=== PATIENT | female | born 1945 | race Caucasian/White ===

== ENCOUNTER 2016-10-13 08:55 | Outpatient (CLI) | payer SELFPAY | END 2016-10-13 08:56 | disposition home or self-care (01) | LOC: LAB 08:55 | DX: Z01.89 Encounter for other specified special examinations (principal) | CPT/HCPCS: 36415 ==

== ENCOUNTER 2016-12-22 10:17 | Outpatient (CLI) | payer MEDICARE ==
--- NOTE | 2016-12-22 12:35 | XRAY Report ---
THREE-VIEW RIGHT FOOT: 12/22/2016 CLINICAL INDICATION: Pain, edema. FINDINGS: AP, lateral, oblique views of the right foot demonstrate osteoarthritis, with hallux valgu s of the first metatarsophalangeal joint. Small plantar calcaneal spur is also present. There is no evidence of acute fracture or dislocation. No radiopaque foreign body is seen in the soft tissues. IMPRESSION: OSTEOARTHRITIS WITH HALLUX VALGUS. JOB #: [id number] EXT JOB #:[id number]
== END 2016-12-22 10:18 | disposition home or self-care (01) ==
LOC: DI 10:17
PROVIDERS: ATTEND Podiatrist
DX: M19.071 Primary osteoarthritis, right ankle and foot (principal); M20.11 Hallux valgus (acquired), right foot

== ENCOUNTER 2017-07-25 23:38 | Emergency (ER) | payer MEDICARE ==
[2017-07-25] MEDS ORDERED: SODIUM CHLORIDE 0.9% 1,000 ML IV ONE (23:52)
[2017-07-25] MEDS ORDERED: METOCLOPRAMIDE 10 MG/2 ML VIAL IVP STA (23:57)
[2017-07-25] MEDS ORDERED: MORPHINE 10 MG/ML VIAL IVP STA (23:57)
[2017-07-26 00:22] LABS: BASOPHILS % (AUTO) 0.2 %; HGB - HEMOGLOBIN 14.1 g/dL (12.0-16.0); LYMPHOCYTES % (AUTO) 7.2 %; MEAN CORPUSCULAR HEMOGLOBIN 29.7 pg (27.0-31.0); MEAN CORPUSCULAR HGB CONC 33.6 g/dL (32.0-36.0); MEAN CORPUSCULAR VOLUME 88.3 fL (81.0-99.0); MEAN PLATELET VOLUME 7.7 fL (7.9-10.8); MONOCYTES # (AUTO) 0.5 10^3/uL (0.0-1.0); MONOCYTES % (AUTO) 3.8 %; NEUTROPHILS # (AUTO) 12.6 10^3/uL (1.5-6.6); NEUTROPHILS % (AUTO) 88.8 %; PLT - PLATELET COUNT 264 10^3/uL (130-450); RED BLOOD COUNT 4.74 10^6/uL (4.20-5.40); RED CELL DISTRIBUTION WIDTH 12.6 % (12.0-15.0); WHITE BLOOD COUNT 14.2 x10^3/uL (4.8-10.8)
[2017-07-26 00:34] LABS: ALBUMIN 4.7 g/dL (3.2-5.5); ALBUMIN/GLOBULIN RATIO 1.6 (1.0-2.2); BILIRUBIN,TOTAL 0.8 mg/dL (0.2-1.0); CALCIUM 9.3 mg/dL (8.5-10.3); CREATININE 0.7 mg/dL (0.4-1.0); TOTAL PROTEIN 7.7 g/dL (6.7-8.2)
[2017-07-26] MEDS ORDERED: IOPAMIDOL-300 100 ML VIAL ONE (00:47)
[2017-07-26] MEDS ORDERED: POTASSIUM BICARB 25 MEQ TABLET PO STA (00:54)
--- NOTE | 2017-07-26 01:00 | ED Physician Documentation ---
PD HPI NVD - Stated complaint Stated Complaint: NAUSEA,ABDOMINAL PAIN - Chief complaint Chief Complaint: Abd Pain - History obtained from History obtained from: Patient, Family - History of Present Illness Timing - onset: Today Timing - details: Abrupt onset, Still present Associated symptoms: Abdominal pain Contributing factors: Bad food Similar symptoms before: Work up / diagnostics, Treatment Recently seen: Not recently seen - Additonal information Additional information: patient is a 72 year old female with no significant past medical history who is presenting to the emergency department for nausea, vomiting, abdominal pain and leg cramps. According to patient and family they went out to eat for dinner and when they came home patient had severe vomiting and an episode of diarrhea, patient states that it then caused her legs to cramp. Upon initial evaluation in the emergency department patient was crying out, and when asked if she was in pain, she said no, it just felt good to moan. Review of Systems Constitutional: reports: Chills. 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 : None HEENT: None Psych: Depression, Anxiety Musculoskeletal: None Derm: None - Past Surgical History Past Surgical History: Yes Ortho: Hip replacement, Knee replacement HEENT: Cataracts, Tonsil/Adenoidectomy - Present Medications Home Medications: Ambulatory Orders Medication Instructions Recorded Confirmed Homeopathic 01/04/15 01/06/15 raNITIdine HCl [Ranitidine HCl] 150 mg PO BID #20 tablet 01/04/15 01/06/15 Metoclopramide [Reglan] 10 mg PO Q6H #20 tablet 07/26/17 - Allergies Allergies/Adverse Reactions: Allergies Allergy/AdvReac Type Severity Reaction Status Date / Time codeine AdvReac Emesis Verified 07/25/17 23:55 ondansetron HCl * AdvReac Headache Verified 07/25/17 23:55 [From Zofran (as hydrochloride)] - Social History Does the pt smoke?: No Smoking Status: Never smoker Does the pt drink ETOH?: Yes Does the pt have substance abuse?: No PD ED PE NORMAL - Vitals Vital signs reviewed: Yes - General General: Alert and oriented X 3 - HEENT HEENT: Atraumatic - Cardiac Cardiac: RRR - Respiratory Respiratory: No respiratory distress - Derm Derm: Normal color, Warm and dry - Extremities Extremities: No deformity - Neuro Neuro: Alert and oriented X 3 PD ED PE EXPANDED - General General: Alert, In Pain - HEENT HEENT: Dry mucous membranes - Abdomen Abdomen: Tender to palpation, Generalized/diffuse. No: Rebound, Guarding Results - Vitals Vitals: Vital Signs - 24 hr 07/25/17 23:40 Temperature 36.9 C Heart Rate 90 Respiratory 24 Rate Blood Pressure 165/106 H O2 Saturation 98 Oxygen O2 Source Room air - Labs Labs: Laboratory Tests 07/25/17 07/25/17 07/25/17 23:55 23:55 23:55 WBC 14.2 H RBC 4.74 Hgb 14.1 Hct 41.9 MCV 88.3 MCH 29.7 MCHC 33.6 RDW 12.6 Plt Count 264 MPV 7.7 L Neut # 12.6 H Lymph # 1.0 L [place] # 0.5 Eos # 0.0 Baso # 0.0 Absolute Nucleated RBC 0.00 Nucleated RBC % 0.0 Sodium 138 Potassium 3.3 L Chloride 103 Carbon Dioxide 22 Anion Gap 13.0 BUN 13 Creatinine 0.7 Estimated GFR (MDRD) 82 L Glucose 175 H Lactic Acid 1.9 Calcium 9.3 Total Bilirubin 0.8 AST 32 ALT 27 Alkaline Phosphatase 72 Total Protein 7.7 Albumin 4.7 Globulin 3.0 Albumin/Globulin Ratio 1.6 Lipase 21 L PD MEDICAL DECISION MAKING - ED course Complexity details: reviewed old records, reviewed results, re-evaluated patient , considered differential, d/w patient, d/w family ED course: Patient was seen and examined at bedside. IV access was gained and labs were drawn. Patient was treated with ns bolus, reglan and morphine. Imaging was ordered due to patient's physical appearance and age. Patient refused imaging. Patient had no further episodes of emesis while in the emergency department. patient required no further work up and was stable for discharge with outpatient follow up. Departure - Departure Disposition: 01 Home, Self Care Clinical Impression: Gastroenteritis Condition: Good Instructions: ED Gastroenteritis Bacterial Follow-Up: primary,care provider [Other] - Within 3 Days Prescriptions: Metoclopramide [Reglan] 10 mg PO Q6H #20 tablet Comments: Your symptoms are being caused by gastroenteritis, likely bacterial in nature. It is normally self limited meaning it should improve over the next few days. it is important that you stay well hydrated with gatorade or other electrolyte solution. You can take the reglan as needed for nausea. You should follow up with your doctor if your symptoms don't improve over the next few days. You may return to the emergency department at any time for new, worsening or uncontrollable symptoms.
[2017-07-26 01:19] VITALS: BP 170/106
== END 2017-07-26 01:30 | disposition home or self-care (01) ==
LOC: ED 23:38
DX: K52.9 Noninfective gastroenteritis and colitis, unspecified (principal); E03.9 Hypothyroidism, unspecified
CPT/HCPCS: 80053; 83605; 83690; 85025; 96361; 96374; 96375; 99283; 99284; A9270; J2765; Q9967; 36415

== ENCOUNTER 2018-01-15 11:04 | Outpatient (CLI) | payer MEDICARE | END 2018-01-15 11:05 | disposition home or self-care (01) | LOC: DI 11:04 | PROVIDERS: ATTEND Internal Medicine | DX: R00.8 Other abnormalities of heart beat (principal) | CPT/HCPCS: 93306 ==

== ENCOUNTER 2018-06-05 13:55 | Emergency (ER) | payer MEDICARE ==
[2018-06-05] MEDS ORDERED: SODIUM CHLORIDE 0.9% 1,000 ML IV ONE ×2 (15:39→17:53)
[2018-06-05] MEDS ORDERED: PROMETHAZINE INJ 25 MG in SODIUM CHLORIDE 0.9% 50 ML IV STA (15:40)
--- NOTE | 2018-06-05 15:42 | ED Physician Documentation ---
PD HPI NVD - Stated complaint Stated Complaint: N/V/D - Chief complaint Chief Complaint: Abd Pain - History obtained from History obtained from: Patient, Family - History of Present Illness Timing - onset: Enter time (1200), Yesterday Timing - duration: Days (1) Timing - details: Abrupt onset, Still present Associated symptoms: Abdominal pain, Dizzy, Near syncope / syncope, Loss of appetite Contributing factors: Bad food Improved by: Meds Worsened by: Eating, Position, Palpation Similar symptoms before: Diagnosis (food poisoning) Recently seen: Not recently seen - Additonal information Additional information: Previously well 73-year-old female ate with her family yesterday and following that she developed abdominal pain nausea vomiting. Review of Systems Constitutional: reports: Chills, Myalgias, Fatigue. denies: Fever Ears: denies: Ear pain Nose: denies: Rhinorrhea / runny nose, Congestion Throat: denies: Sore throat Cardiac: denies: Chest pain / pressure, Palpitations Respiratory: denies: Dyspnea, Cough GI: reports: Abdominal Pain, Nausea, Vomiting : denies: Dysuria, Frequency Skin: denies: Rash Musculoskeletal: denies: Neck pain, Back pain, Extremity pain Neurologic: reports: Generalized weakness. 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 : None HEENT: None Psych: Depression, Anxiety Musculoskeletal: None Derm: None - Past Surgical History Past Surgical History: Yes Ortho: Hip replacement, Knee replacement HEENT: Cataracts, Tonsil/Adenoidectomy - Present Medications Home Medications: Ambulatory Orders Medication Instructions Recorded Confirmed Homeopathic 01/04/15 01/06/15 Promethazine [Phenergan] 25 mg PO Q6H PRN #10 tab 06/05/18 - Allergies Allergies/Adverse Reactions: Allergies Allergy/AdvReac Type Severity Reaction Status Date / Time codeine AdvReac Emesis Verified 06/05/18 16:58 ondansetron HCl * AdvReac Headache Verified 06/05/18 16:58 [From Zofran (as hydrochloride)] - Social History Does the pt smoke?: No Smoking Status: Never smoker Does the pt drink ETOH?: Yes Does the pt have substance abuse?: No PD ED PE NORMAL - Vitals Vital signs reviewed: Yes (hypertensive marked ) - General General: Alert and oriented X 3, No acute distress, Well developed/nourished - HEENT HEENT: Atraumatic, PERRL, EOMI, Other (mucous membranes are dry) - Neck Neck: Supple, no meningeal sign, No bony TTP - Cardiac Cardiac: No murmur, Other (tachy to 110) - Respiratory Respiratory: No respiratory distress, Clear bilaterally - Abdomen Abdomen: Soft, Non tender - Back Back: No CVA TTP, No spinal TTP - Derm Derm: Normal color, Warm and dry, No rash - Extremities Extremities: No deformity, No edema - Neuro Neuro: Alert and oriented X 3, 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, No motor deficit, No sensory deficit, Normal speech Eye Opening: Spontaneous Motor: Obeys Commands Verbal: Oriented GCS Score: 15 - Psych Psych: Normal mood, Normal affect Results - Vitals Vitals: Vital Signs - 24 hr 06/05/18 19:06 Temperature 37.6 C H Heart Rate 93 Respiratory 16 Rate Blood Pressure 109/72 O2 Saturation 97 Oxygen O2 Source Room air - Labs Labs: Laboratory Tests 06/05/18 06/05/18 06/05/18 15:47 15:47 15:47 WBC 13.0 H RBC 4.94 Hgb 14.9 Hct 43.1 MCV 87.3 MCH 30.2 MCHC 34.6 RDW 12.8 Plt Count 263 MPV 7.2 L Neut # (Auto) 10.9 H Lymph # (Auto) 1.0 L [place] # (Auto) 1.0 Eos # (Auto) 0.0 Baso # (Auto) 0.0 Absolute Nucleated RBC 0.00 Nucleated RBC % 0.0 Sodium 130 L Potassium 3.0 L Chloride 93 L Carbon Dioxide 23 Anion Gap 14.0 H BUN 9 Creatinine 0.5 Estimated GFR (MDRD) 121 Glucose 157 H Calcium 9.5 Total Bilirubin 0.9 AST 24 ALT 20 Alkaline Phosphatase 70 Troponin I 0.05 Total Protein 7.8 Albumin 4.7 Globulin 3.1 Albumin/Globulin Ratio 1.5 Lipase 27 Urine Color Urine Clarity Urine pH Ur Specific [place] Urine Protein Urine Glucose (UA) Urine Ketones Urine Occult Blood Urine Nitrite Urine Bilirubin Urine Urobilinogen Ur Leukocyte Esterase Urine RBC Urine WBC Ur Squamous Epith Cells Urine Bacteria Urine Mucus Ur Microscopic Review Urine Culture Comments 06/05/18 17:20 WBC RBC Hgb Hct MCV MCH MCHC RDW Plt Count MPV Neut # (Auto) Lymph # (Auto) [place] # (Auto) Eos # (Auto) Baso # (Auto) Absolute Nucleated RBC Nucleated RBC % Sodium Potassium Chloride Carbon Dioxide Anion Gap BUN Creatinine Estimated GFR (MDRD) Glucose Calcium Total Bilirubin AST ALT Alkaline Phosphatase Troponin I Total Protein Albumin Globulin Albumin/Globulin Ratio Lipase Urine Color YELLOW Urine Clarity CLEAR Urine pH 6.5 Ur Specific [place] 1.010 Urine Protein 30 H Urine Glucose (UA) NEGATIVE Urine Ketones 15 H Urine Occult Blood TRACE-INTA Urine Nitrite NEGATIVE Urine Bilirubin NEGATIVE Urine Urobilinogen 0.2 (NORMAL) Ur Leukocyte Esterase NEGATIVE Urine RBC 0-5 Urine WBC 0-3 Ur Squamous Epith Cells MANY Squamous H Urine Bacteria Few Urine Mucus Moderate Strands Ur Microscopic Review INDICATED Urine Culture Comments NOT INDICATED Procedures - IVC sono (time) 1535 Bedside IVC sono: IVC measures (cm) (0.75), IVC collapsed c insp (cm) (com plete), Significant dehydration (>2 liters deficit) PD MEDICAL DECISION MAKING - ED course Complexity details: reviewed old records, reviewed results, re-evaluated patient, considered differential, d/w patient, d/w family ED course: 73-year-old female with acute nausea vomiting is dehydrated on interrogation of the inferior vena cava and she appears to be more than 2 L depleted. An IV saline is begun she is given an Phenergan for nausea. She has a history of repeated episodes of vomiting and she has previously failed out patient management and required admission. She does use cannabis but she has not been diagnosed with cannabis hyperemesis. She continues to have nausea and she is given haldol 2mg IV. The haldol seems to help a lot. Departure - Departure Disposition: 01 Home, Self Care Clinical Impression: Dehydration, Gastroenteritis, Hypokalemia Condition: Stable Instructions: ED Dehydration, ED Food Poison Or Gastroenteritis Follow-Up: ALISSA STERN MD [Primary Care Provider] - Prescriptions: Promethazine [Phenergan] 25 mg PO Q6H PRN #10 tab PRN Reason: Nausea / Vomiting Discharge Date/Time: 06/05/18 19:40
[2018-06-05 16:00] LABS: BASOPHILS % (AUTO) 0.4 %; HGB - HEMOGLOBIN 14.9 g/dL (12.0-16.0); LYMPHOCYTES % (AUTO) 7.6 %; MEAN CORPUSCULAR HEMOGLOBIN 30.2 pg (27.0-31.0); MEAN CORPUSCULAR HGB CONC 34.6 g/dL (32.0-36.0); MEAN CORPUSCULAR VOLUME 87.3 fL (81.0-99.0); MEAN PLATELET VOLUME 7.2 fL (7.9-10.8); MONOCYTES % (AUTO) 7.8 %; NEUTROPHILS # (AUTO) 10.9 10^3/uL (1.5-6.6); NEUTROPHILS % (AUTO) 84.2 %; PLT - PLATELET COUNT 263 10^3/uL (130-450); RED BLOOD COUNT 4.94 10^6/uL (4.20-5.40); RED CELL DISTRIBUTION WIDTH 12.8 % (12.0-15.0)
[2018-06-05 16:18] LABS: ALBUMIN 4.7 g/dL (3.2-5.5); ALBUMIN/GLOBULIN RATIO 1.5 (1.0-2.2); BILIRUBIN,TOTAL 0.9 mg/dL (0.2-1.0); CALCIUM 9.5 mg/dL (8.5-10.3); CREATININE 0.5 mg/dL (0.4-1.0); TOTAL PROTEIN 7.8 g/dL (6.7-8.2)
[2018-06-05] MEDS ORDERED: POTASSIUM BICARB 25 MEQ TABLET PO STA ×2 (16:31→17:58)
[2018-06-05 18:10] LABS: BILIRUBIN,URINE NEGATIVE (NEGATIVE); GLUCOSE, URINE (UA) NEGATIVE (NEGATIVE); KETONES,URINE (UA) 15 mg/dL (NEGATIVE); LEUKOCYTE ESTERASE, URINE NEGATIVE (NEGATIVE); NITRITE,URINE NEGATIVE (NEGATIVE); OCCULT BLOOD,URINE TRACE-INTA (NEGATIVE); PH,URINE 6.5 PH (5.0-7.5); PROTEIN,URINE 30 mg/dL (NEGATIVE); UROBILINOGEN,URINE 0.2 (NORMAL) E.U./dL (NORMAL)
[2018-06-05] MEDS ORDERED: HALOPERIDOL 5 MG/ML VIAL IVP ONE (18:11)
[2018-06-05 18:15] LABS: CLARITY,URINE CLEAR (CLEAR)
[2018-06-05 18:19] LABS: BACTERIA,URINE Few /HPF (None Seen); MUCUS,URINE Moderate Strands; RBC,URINE 0-5 /HPF (0-5); SQUAMOUS EPITHELIAL CELL,UR MANY Squamous (<= Few)
[2018-06-05 19:07] VITALS: BP 109/72
== END 2018-06-05 19:40 | disposition home or self-care (01) ==
LOC: ED 13:55
DX: E86.0 Dehydration (principal); K52.9 Noninfective gastroenteritis and colitis, unspecified; E87.6 Hypokalemia; E03.9 Hypothyroidism, unspecified; Z96.649 Presence of unspecified artificial hip joint; Z96.659 Presence of unspecified artificial knee joint
CPT/HCPCS: 36415; 80053; 81001; 83690; 84484; 85025; 96361; 96365; 96375; 99283; A9270; J7040; 81003; 87086

== ENCOUNTER 2018-06-07 14:25 | Emergency (ER) | payer MEDICARE ==
[2018-06-07 15:38] LABS: BASOPHILS # (AUTO) 0.1 10^3/uL (0.0-0.1); BASOPHILS % (AUTO) 0.4 %; HGB - HEMOGLOBIN 16.1 g/dL (12.0-16.0); LYMPHOCYTES # (AUTO) 1.4 10^3/uL (1.5-3.5); LYMPHOCYTES % (AUTO) 10.7 %; MEAN CORPUSCULAR HEMOGLOBIN 29.8 pg (27.0-31.0); MEAN CORPUSCULAR HGB CONC 34.1 g/dL (32.0-36.0); MEAN CORPUSCULAR VOLUME 87.4 fL (81.0-99.0); MEAN PLATELET VOLUME 7.3 fL (7.9-10.8); MONOCYTES # (AUTO) 1.4 10^3/uL (0.0-1.0); MONOCYTES % (AUTO) 10.8 %; NEUTROPHILS # (AUTO) 10.4 10^3/uL (1.5-6.6); NEUTROPHILS % (AUTO) 78.1 %; PLT - PLATELET COUNT 292 10^3/uL (130-450); RED BLOOD COUNT 5.41 10^6/uL (4.20-5.40); RED CELL DISTRIBUTION WIDTH 12.7 % (12.0-15.0); WHITE BLOOD COUNT 13.3 x10^3/uL (4.8-10.8)
--- NOTE | 2018-06-07 15:56 | ED Physician Documentation ---
PD HPI NVD - Stated complaint Stated Complaint: VOMITING - Chief complaint Chief Complaint: Abd Pain - History obtained from History obtained from: Patient - History of Present Illness Timing - onset: How many days ago (has had upper abd pain and vomiting and seen in ED 2 days ago, with IV fluids and meds. Had labs which was normal. felt improved and then nausea again after discharge.) Timing - duration: Days Timing - details: Abrupt onset, Still present Associated symptoms: Abdominal pain (epigastric area, non-constant). No: Fever, Chest pain, Hematemesis Contributing factors: No: Sick contact, Bad food Similar symptoms before: Diagnosis (gastritis in the past.) Recently seen: Emergency Dept (2 days ago) Review of Systems Constitutional: denies: Fever Nose: denies: Rhinorrhea / runny nose, Congestion Throat: denies: Sore throat Respiratory: denies: Cough GI: reports: Abdominal Pain, Nausea, Vomiting. 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 HEENT: None Psych: Depression, Anxiety Musculoskeletal: None Derm: None - Past Surgical History Past Surgical History: Yes Ortho: Hip replacement, Knee replacement HEENT: Cataracts, Tonsil/Adenoidectomy - Present Medications Home Medications: Ambulatory Orders Medication Instructions Recorded Confirmed Homeopathic 01/04/15 01/06/15 Promethazine [Phenergan] 25 mg PO Q6H PRN #10 tab 06/05/18 Famotidine 20 mg PO DAILY #20 tablet 06/07/18 Prochlorperazine [Compazine] 5 mg PO Q6H PRN #12 tablet 06/07/18 - Allergies Allergies/Adverse Reactions: Allergies Allergy/AdvReac Type Severity Reaction Status Date / Time codeine AdvReac Emesis Verified 06/07/18 14:35 ondansetron HCl * AdvReac Headache Verified 06/07/18 14:35 [From Zofran (as hydrochloride)] - Social History Does the pt smoke?: No Smoking Status: Never smoker Does the pt drink ETOH?: Yes Does the pt have substance abuse?: No - Immunizations Immunizations are current?: Yes - POLST Patient has POLST: No PD ED PE NORMAL - Vitals Vital signs reviewed: Yes - General General: Alert and oriented X 3, No acute distress, Well developed/nourished - HEENT HEENT: PERRL (nonicteric), Pharynx benign - Neck Neck: Supple, no meningeal sign, No adenopathy - Cardiac Cardiac: RRR, No murmur - Respiratory Respiratory: Clear bilaterally - Abdomen Abdomen: Normal bowel sounds, Soft, Non distended, No organomegaly, Other (epigastric tender without guarding. Not tender RUQ. ) - Female Female : Deferred - Rectal Rectal: Deferred - Back Back: No CVA TTP - Derm Derm: Normal color - Neuro Neuro: Alert and oriented X 3, No motor deficit, Normal speech Results - Vitals Vitals: Oxygen O2 Source Room air - Labs Labs: Laboratory Tests 06/07/18 06/07/18 06/07/18 15:24 15:24 15:24 WBC 13.3 H RBC 5.41 H Hgb 16.1 H Hct 47.3 H MCV 87.4 MCH 29.8 MCHC 34.1 RDW 12.7 Plt Count 292 MPV 7.3 L Neut # (Auto) 10.4 H Lymph # (Auto) 1.4 L [place] # (Auto) 1.4 H Eos # (Auto) 0.0 Baso # (Auto) 0.1 Absolute Nucleated RBC 0.00 Nucleated RBC % 0.0 Sodium 129 L Potassium 3.2 L Chloride 93 L Carbon Dioxide 25 Anion Gap 11.0 BUN 19 Creatinine 0.8 Estimated GFR (MDRD) 70 L Glucose 123 H Calcium 9.6 Magnesium 2.5 Total Bilirubin 1.1 H AST 19 ALT 20 Alkaline Phosphatase 64 Total Protein 7.5 Albumin 4.2 Globulin 3.3 Albumin/Globulin Ratio 1.3 Lipase 35 Urine Color Urine Clarity Urine pH Ur Specific [place] Urine Protein Urine Glucose (UA) Urine Ketones Urine Occult Blood Urine Nitrite Urine Bilirubin Urine Urobilinogen Ur Leukocyte Esterase Urine RBC Urine WBC Ur Squamous Epith Cells Urine Bacteria Ur Microscopic Review Urine Culture Comments 06/07/18 16:30 WBC RBC Hgb Hct MCV MCH MCHC RDW Plt Count MPV Neut # (Auto) Lymph # (Auto) [place] # (Auto) Eos # (Auto) Baso # (Auto) Absolute Nucleated RBC Nucleated RBC % Sodium Potassium Chloride Carbon Dioxide Anion Gap BUN Creatinine Estimated GFR (MDRD) Glucose Calcium Magnesium Total Bilirubin AST ALT Alkaline Phosphatase Total Protein Albumin Globulin Albumin/Globulin Ratio Lipase Urine Color YELLOW Urine Clarity HAZY Urine pH 6.0 Ur Specific [place] >=1.030 H Urine Protein 100 H Urine Glucose (UA) NEGATIVE Urine Ketones 15 H Urine Occult Blood TRACE-LY[place] Urine Nitrite NEGATIVE Urine Bilirubin NEGATIVE Urine Urobilinogen 0.2 (NORMAL) Ur Leukocyte Esterase SMALL H Urine RBC 0-5 Urine WBC 6-10 H Ur Squamous Epith Cells MANY Squamous H Urine Bacteria Few Ur Microscopic Review INDICATED Urine Culture Comments NOT INDICATED PD MEDICAL DECISION MAKING - ED course Complexity details: reviewed old records, re-evaluated patient (improved without vomiting upon PO challenge. ), considered differential, d/w patient, d/w family (daughter was hoping for admission, but the patient improved pretty well and is taking water and then food here in ER without nausea nor vomiting. ) Departure - Departure Disposition: 01 Home, Self Care Clinical Impression: Vomiting Qualifiers: Vomiting type: unspecified Vomiting Intractability: non-intractable Nausea presence: with nausea Qualified Code(s): R11.2 - Nausea with vomiting, unspecified Gastritis Qualifiers: Gastritis type: unspecified gastritis Chronicity: acute Gastritis bleeding: without bleeding Qualified Code(s): K29.00 - Acute gastritis without bleeding Condition: Stable Record reviewed to determine appropriate education?: Yes Instructions: ED Nausea Vomiting Follow-Up: ALISSA STERN MD [Primary Care Provider] - Prescriptions: Famotidine 20 mg PO DAILY #20 tablet Prochlorperazine [Compazine] 5 mg PO Q6H PRN #12 tablet PRN Reason: Nausea / Vomiting Comments: Small frequent fluids and initially bland food. 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 If the promethazine (Phenergan) was not helping with the nausea, you can try Compazine instead. At this point I am predicting she will be more tolerant of food and fluid intake and keep it down as he did seem able to do it here. I realize IV works better but at this point we do have to try having her home and see if different medications work. Discharge Date/Time: 06/07/18 18:52
[2018-06-07 15:57] LABS: ALBUMIN 4.2 g/dL (3.2-5.5); ALBUMIN/GLOBULIN RATIO 1.3 (1.0-2.2); BILIRUBIN,TOTAL 1.1 mg/dL (0.2-1.0); CALCIUM 9.6 mg/dL (8.5-10.3); CREATININE 0.8 mg/dL (0.4-1.0); TOTAL PROTEIN 7.5 g/dL (6.7-8.2)
[2018-06-07] MEDS ORDERED: SODIUM CHLORIDE 0.9% 1,000 ML IV ONE ×2 (16:14→16:17)
[2018-06-07] MEDS ORDERED: diphenhydrAMINE INJ 50 MG/ML VIAL IVP STA (16:14)
[2018-06-07] MEDS ORDERED: FAMOTIDINE 20 MG/2 ML VIAL IVP STA (16:14)
[2018-06-07] MEDS ORDERED: HALOPERIDOL 5 MG/ML VIAL IVP ONE (16:14)
[2018-06-07] MEDS ORDERED: POTASSIUM CHLOR 10 MEQ/100 ML 10 MEQ/100 ML BAG IV STA (16:17)
[2018-06-07 16:53] LABS: GLUCOSE, URINE (UA) NEGATIVE (NEGATIVE); KETONES,URINE (UA) 15 mg/dL (NEGATIVE); LEUKOCYTE ESTERASE, URINE SMALL (NEGATIVE); NITRITE,URINE NEGATIVE (NEGATIVE); OCCULT BLOOD,URINE TRACE-LYSE (NEGATIVE); PROTEIN,URINE 100 mg/dL (NEGATIVE); UROBILINOGEN,URINE 0.2 (NORMAL) E.U./dL (NORMAL)
[2018-06-07] MEDS ORDERED: PROCHLORPERAZINE 10 MG/2 ML VIAL IVP STA (17:07)
[2018-06-07 17:15] LABS: BILIRUBIN,URINE NEGATIVE (NEGATIVE); CLARITY,URINE HAZY (CLEAR); ICTOTEST,URINE NEGATIVE
[2018-06-07 17:16] LABS: BACTERIA,URINE Few /HPF (None Seen); RBC,URINE 0-5 /HPF (0-5); SQUAMOUS EPITHELIAL CELL,UR MANY Squamous (<= Few)
[2018-06-07 18:28] VITALS: BP 111/71
== END 2018-06-07 18:52 | disposition home or self-care (01) ==
LOC: ED 14:25
DX: R11.2 Nausea with vomiting, unspecified (principal); K29.00 Acute gastritis without bleeding; E03.9 Hypothyroidism, unspecified; Z96.649 Presence of unspecified artificial hip joint; Z96.659 Presence of unspecified artificial knee joint
CPT/HCPCS: 36415; 80053; 81001; 83690; 83735; 85025; 96361; 96365; 96375; 99283; J1200; 81003; 87086

== ENCOUNTER 2019-08-30 11:11 | Outpatient (CLI) | payer MEDICARE ==
--- NOTE | 2019-08-30 17:26 | XRAY Report ---
Reason: LEFT SHOULDER PAIN Procedure Date: 08/30/2019 Accession Number: [id number] / [id number] Procedure: XR - Shoulder 3 View LT CPT Code: Final Report FULL RESULT: PROCEDURE: Shoulder 3 View LT INDICATIONS: LEFT SHOULDER PAIN TECHNIQUE: 3 views of the shoulder were acquired. COMPARISON: None. FINDINGS: Bones: No fractures or dislocations. No suspicious bony lesions. Visualized ribs appear intact. Mild periarticular osteophyte formation at the glenohumeral and acromioclavicular joints. Soft tissues: No suspicious soft tissue calcifications. IMPRESSION: Osteoarthritis. No acute fracture. No osseous lesion. If symptoms and/or clinical suspicion for pathology continue, further assessment with repeat plain films, or advanced imaging (e.g., CT, MRI, or bone scan) is recommended for further assessment. Reviewed by: Malachi Monte MD on 08/30/2019 11:44 AM PDT Approved by: Malachi Monte MD on 08/30/2019 11:44 AM PDT Station ID: [id number]
== END 2019-08-30 11:12 | disposition home or self-care (01) ==
LOC: DI 11:11
PROVIDERS: ATTEND Nurse Practitioner Family
DX: M19.012 Primary osteoarthritis, left shoulder (principal)

== ENCOUNTER 2022-05-06 11:40 | Outpatient (CLI) | payer MEDICARE ==
--- NOTE | 2022-05-06 15:48 | XRAY Report ---
PROCEDURE: Chest 2 View X-Ray INDICATIONS: DYSPNEA TECHNIQUE: 2 views of the chest were acquired. COMPARISON: None. FINDINGS: Surgical changes and devices: None. Lungs and pleura: No pleural effusions or pneumothorax. Bilateral interstitial prominence. Mediastinum: Mediastinal contours are normal. Heart size is normal. Bones and chest wall: No suspicious bony abnormalities. Soft tissues appear unremarkable. IMPRESSION: Bilateral interstitial prominence which could represent chronic interstitial lung disease, pulmonary edema or atypical pneumonia. No lung consolidation. Reviewed by: Lorena Casanova MD, PhD on 05/06/2022 3:47 PM PST Approved by: Lorena Casanova MD, PhD on 05/06/2022 3:47 PM PST Station ID: [id number]
== END 2022-05-06 11:41 | disposition home or self-care (01) ==
LOC: DI.S 11:40
PROVIDERS: ATTEND Physician Assistant
DX: R06.00 Dyspnea, unspecified (principal)

== ENCOUNTER 2022-05-07 10:29 | Outpatient (CLI) | payer MEDICARE ==
[2022-05-07 15:32] LABS: ALBUMIN 3.9 g/dL (3.2-5.5); BILIRUBIN,DIRECT 0.1 mg/dL (0.1-0.5); BILIRUBIN,TOTAL 0.9 mg/dL (0.2-1.0); TOTAL PROTEIN 6.6 g/dL (6.7-8.2)
[2022-05-08 05:11] LABS: HBsAG SCREEN Negative (Negative); HCV AB <0.1 s/co ratio (0.0-0.9); HEPATITIS B CORE IGM AB Negative (Negative)
== END 2022-05-07 10:30 | disposition home or self-care (01) ==
LOC: LAB.S 10:29
PROVIDERS: ATTEND Physician Assistant
DX: R06.00 Dyspnea, unspecified (principal); R74.8 Abnormal levels of other serum enzymes
CPT/HCPCS: 36415; 80076; 83880; 85379; 86705; 86709; 86803; 87340

== ENCOUNTER 2022-05-12 14:45 | Outpatient (CLI) | payer MEDICARE ==
[2022-05-12 20:16] LABS: BASOPHILS # (AUTO) 0.1 10^3/uL (0.0-0.1); BASOPHILS % (AUTO) 0.8 %; EOSINOPHILS # (AUTO) 0.1 10^3/uL (0.0-0.7); EOSINOPHILS % (AUTO) 1.5 %; HCT - HEMATOCRIT 45.9 % (37.0-47.0); HGB - HEMOGLOBIN 14.6 g/dL (12.0-16.0); LYMPHOCYTES # (AUTO) 1.8 10^3/uL (1.5-3.5); LYMPHOCYTES % (AUTO) 24.5 %; MEAN CORPUSCULAR HEMOGLOBIN 29.5 pg (27.0-31.0); MEAN CORPUSCULAR HGB CONC 31.8 g/dL (32.0-36.0); MEAN CORPUSCULAR VOLUME 92.7 fL (81.0-99.0); MEAN PLATELET VOLUME 10.6 fL (7.9-10.8); MONOCYTES # (AUTO) 0.7 10^3/uL (0.0-1.0); MONOCYTES % (AUTO) 9.3 %; NEUTROPHILS # (AUTO) 4.6 10^3/uL (1.5-6.6); NEUTROPHILS % (AUTO) 63.6 %; PLT - PLATELET COUNT 241 10^3/uL (130-450); RED BLOOD COUNT 4.95 10^6/uL (4.20-5.40); RED CELL DISTRIBUTION WIDTH 13.7 % (12.0-15.0); WHITE BLOOD COUNT 7.2 x10^3/uL (4.8-10.8)
[2022-05-12 20:30] LABS: ALBUMIN 4.1 g/dL (3.2-5.5); ALBUMIN/GLOBULIN RATIO 1.5 (1.0-2.2); ALKALINE PHOSPHATASE 81 IU/L (42-121); ALT ALANINE AMINOTRANSFERASE 49 IU/L (10-60); AST ASPARTATE AMINOTRANSFERASE 24 IU/L (10-42); BILIRUBIN,TOTAL 0.5 mg/dL (0.2-1.0); BUN - BLOOD UREA NITROGEN 22 mg/dL (6-20); CALCIUM 9.8 mg/dL (8.5-10.3); CARBON DIOXIDE - CO2 26 mmol/L (21-32); CHLORIDE 102 mmol/L (101-111); CREATININE 0.6 mg/dL (0.4-1.0); GFR - MDRD 97 (>89); GLUCOSE 98 mg/dL (70-100); POTASSIUM 3.8 mmol/L (3.5-5.0); SODIUM 138 mmol/L (135-145); TOTAL PROTEIN 6.9 g/dL (6.7-8.2)
[2022-05-12 20:46] LABS: THYROID STIMULATING HORMONE 1.23 uIU/mL (0.34-5.60)
[2022-05-12 20:47] LABS: FREE T4 (FREE THYROXINE) 0.82 ng/dL (0.58-1.64)
[2022-05-12 20:48] LABS: FREE T3 3.38 pg/mL (2.5-3.9)
[2022-05-12 20:52] LABS: FERRITIN 71.5 ng/mL (11.0-306.8)
[2022-05-12 21:00] LABS: CRP HIGH SENSITIVITY < 0.5 mg/L
[2022-05-12 21:19] LABS: ESTIMATED AVERAGE GLUCOSE 114 mg/dL (70-100); HEMOGLOBIN A1c% 5.6 % (4.27-6.07)
[2022-05-12 21:25] LABS: FIBRINOGEN 433 mg/dL (220-496)
[2022-05-14 08:10] LABS: DHEA-SULFATE 96.5 ug/dL (13.9-142.8); VITAMIN D 25-HYDROXY 88.9 ng/mL (30.0-100.0)
== END 2022-05-12 14:46 | disposition home or self-care (01) ==
LOC: LAB.S 14:45
DX: E27.8 Other specified disorders of adrenal gland (principal); F41.9 Anxiety disorder, unspecified; D68.9 Coagulation defect, unspecified; E03.9 Hypothyroidism, unspecified; E55.9 Vitamin D deficiency, unspecified; M19.019 Primary osteoarthritis, unspecified shoulder; M19.92 Post-traumatic osteoarthritis, unspecified site; M16.9 Osteoarthritis of hip, unspecified
CPT/HCPCS: 36415; 80053; 81599; 82306; 82626; 82627; 82728; 83036; 83090; 83615; 83625; 84439; 84443; 84481; 85025; 85379; 85384; 85651; 86141

== ENCOUNTER 2022-07-08 14:18 | Outpatient (CLI) | payer MEDICARE ==
[2022-07-08 19:58] LABS: BASOPHILS # (AUTO) 0.1 10^3/uL (0.0-0.1); BASOPHILS % (AUTO) 0.8 %; EOSINOPHILS # (AUTO) 0.1 10^3/uL (0.0-0.7); EOSINOPHILS % (AUTO) 1.8 %; HCT - HEMATOCRIT 41.5 % (37.0-47.0); HGB - HEMOGLOBIN 13.3 g/dL (12.0-16.0); LYMPHOCYTES # (AUTO) 1.5 10^3/uL (1.5-3.5); LYMPHOCYTES % (AUTO) 22.8 %; MEAN CORPUSCULAR HEMOGLOBIN 29.6 pg (27.0-31.0); MEAN CORPUSCULAR VOLUME 92.2 fL (81.0-99.0); MEAN PLATELET VOLUME 10.3 fL (7.9-10.8); MONOCYTES # (AUTO) 0.7 10^3/uL (0.0-1.0); MONOCYTES % (AUTO) 10.6 %; NEUTROPHILS # (AUTO) 4.2 10^3/uL (1.5-6.6); NEUTROPHILS % (AUTO) 63.5 %; PLT - PLATELET COUNT 229 10^3/uL (130-450); RED CELL DISTRIBUTION WIDTH 12.6 % (12.0-15.0); WHITE BLOOD COUNT 6.6 x10^3/uL (4.8-10.8)
== END 2022-07-08 14:19 | disposition home or self-care (01) ==
LOC: LAB.S 14:18
PROVIDERS: ATTEND Preventive Medicine Public Health & General Preventive Medicine
DX: I50.22 Chronic systolic (congestive) heart failure (principal); I48.91 Unspecified atrial fibrillation
CPT/HCPCS: 36415; 83880; 85025

== ENCOUNTER 2022-07-09 08:47 | Outpatient (CLI) | payer MEDICARE ==
[2022-07-09 15:31] LABS: ALBUMIN 3.9 g/dL (3.2-5.5); ALBUMIN/GLOBULIN RATIO 1.4 (1.0-2.2); BILIRUBIN,TOTAL 0.6 mg/dL (0.2-1.0); CREATININE 0.6 mg/dL (0.4-1.0); POTASSIUM 3.8 mmol/L (3.5-5.0); TOTAL PROTEIN 6.6 g/dL (6.7-8.2)
== END 2022-07-09 08:48 | disposition home or self-care (01) ==
LOC: LAB.S 08:47
PROVIDERS: ATTEND Preventive Medicine Public Health & General Preventive Medicine
DX: I48.91 Unspecified atrial fibrillation (principal); I50.9 Heart failure, unspecified
CPT/HCPCS: 36415; 80053

== ENCOUNTER 2022-09-24 21:17 | Emergency (ER) | payer MEDICARE ==
[2022-09-24] MEDS ORDERED: SODIUM CHLORIDE 0.9% 1,000 ML IV STA (21:26)
--- OUTSIDE RECORDS SUMMARY | 2022-09-24 21:39 | EXTERNAL MEDICAL SUMMARY RPT | Continuity of Care Document ---
Author Name Unknown Address [address] [place] [address] Phone Organization [place] Address [address] [place] [phone] Phone Problems date description facility 2022-08-21 15:04 Unspecified atrial fibrillation [facility] 2022-08-22 10:39 Unspecified atrial fibrillation [facility]
[2022-09-24 21:41] LABS: BASOPHILS # (AUTO) 0.1 10^3/uL (0.0-0.1); EOSINOPHILS # (AUTO) 0.1 10^3/uL (0.0-0.7); EOSINOPHILS % (AUTO) 2.1 %; HCT - HEMATOCRIT 41.2 % (37.0-47.0); HGB - HEMOGLOBIN 13.4 g/dL (12.0-16.0); LYMPHOCYTES # (AUTO) 1.6 10^3/uL (1.5-3.5); LYMPHOCYTES % (AUTO) 26.7 %; MEAN CORPUSCULAR HEMOGLOBIN 29.3 pg (27.0-31.0); MEAN CORPUSCULAR HGB CONC 32.5 g/dL (32.0-36.0); MEAN PLATELET VOLUME 9.8 fL (7.9-10.8); MONOCYTES # (AUTO) 0.7 10^3/uL (0.0-1.0); MONOCYTES % (AUTO) 11.7 %; NEUTROPHILS # (AUTO) 3.6 10^3/uL (1.5-6.6); NEUTROPHILS % (AUTO) 58.3 %; PLT - PLATELET COUNT 209 10^3/uL (130-450); RED BLOOD COUNT 4.58 10^6/uL (4.20-5.40); RED CELL DISTRIBUTION WIDTH 12.7 % (12.0-15.0); WHITE BLOOD COUNT 6.2 x10^3/uL (4.8-10.8)
[2022-09-24 21:51] LABS: ALBUMIN 3.9 g/dL (3.2-5.5); ALBUMIN/GLOBULIN RATIO 1.3 (1.0-2.2); BILIRUBIN,TOTAL 0.6 mg/dL (0.2-1.0); CALCIUM 9.6 mg/dL (8.5-10.3); CREATININE 0.6 mg/dL (0.4-1.0); POTASSIUM 3.5 mmol/L (3.5-5.0); TOTAL PROTEIN 6.8 g/dL (6.7-8.2)
--- NOTE | 2022-09-24 22:48 | ED Physician Documentation ---
History of Present Illness - Stated complaint Stated Complaint: SHAKY/AFIB - Chief complaint Chief Complaint: Cardiac - History obtained from History obtained from: Patient - Additonal information Additional information: The patient comes to the emergency department chief complaint of feeling shaky and fatigued today. She states that she has a history of atrial fibrillation chronically and was at a retreat doing a lot of yoga and meditation, when she began to feel shaky. Patient states this is not unusual when she does the sorts of things, as "A lot of trauma comes out" and she states she just lets it come out and what ever way it well. She states she started to feel as though her hands and feet were tingling and her body began to shake. She states initially she just sat down and waited for it to pass but it kept going so she laid down. The patient states that the symptoms lasted for most of the rest of the day and That she also noticed she just felt fatigued. The patient came home and tried eating dinner but it did not really help so she finally decided to come to the emergency department after her friend told her she should. The patient denies any other specific symptoms of illness. No fever or chills. No respiratory symptoms. She has not been nauseated or vomiting. The patient does admit to probably not drinking enough water today and yesterday. She states that she has a finger monitor that she can use to see how her heart rate and rhythm are doing and she noticed that her heart rate seem to be fluctuating in the low 100s. She states that the little higher than usual. The patient takes Eliquis Toprol well for her chronic A-fib. She denies any chest pain or shortness of breath. No feeling of her heart racing or palpitating. PD PAST MEDICAL HISTORY - Past Medical History Cardiovascular: None Respiratory: None Neuro: None Endocrine/Autoimmune: HyPOthyroidism GI: None SURGICAL ASST: None : None HEENT: None Psych: Depression, Anxiety Musculoskeletal: None Derm: None - Past Surgical History Past Surgical History: Yes Ortho: Hip replacement, Knee replacement HEENT: Cataracts, Tonsil/Adenoidectomy - Present Medications Home Medications: Ambulatory Orders Medication Instructions Recorded Confirmed Homeopathic 01/04/15 01/06/15 Promethazine [Phenergan] 25 mg PO Q6H PRN #10 tab 06/05/18 Famotidine 20 mg PO DAILY #20 tablet 06/07/18 Prochlorperazine [Compazine] 5 mg PO Q6H PRN #12 tablet 06/07/18 - Allergies Allergies/Adverse Reactions: Allergies Allergy/AdvReac Type Severity Reaction Status Date / Time codeine AdvReac Emesis Verified 06/07/18 14:35 ondansetron HCl * AdvReac Headache Verified 06/07/18 14:35 [From Zofran (as hydrochloride)] - Social History Does the pt smoke?: No Smoking Status: Never smoker Does the pt drink ETOH?: Yes Does the pt have substance abuse?: No - Immunizations Immunizations are current?: Yes - POLST Patient has POLST: No PD ED PE NORMAL - Vitals Vital signs reviewed: Yes - General General: Alert and oriented X 3, No acute distress, Well developed/nourished - HEENT HEENT: Atraumatic, PERRL, EOMI, Moist mucous membranes - Neck Neck: Supple, no meningeal sign - Cardiac Cardiac: No murmur, Strong equal pulses, Other (Irregular rate and rhythm; 3/6 systolic murmur.) - Respiratory Respiratory: No respiratory distress, Clear bilaterally - Abdomen Abdomen: Soft, Non tender, Non distended - Derm Derm: Normal color, Warm and dry, No rash - Extremities Extremities: No deformity - Neuro Neuro: Alert and oriented X 3 - Psych Psych: Normal mood, Normal affect Results - Vitals Vitals: Vital Signs - 24 hr 09/24/22 09/24/22 09/24/22 21:28 21:30 23:48 Temperature 36.9 C Heart Rate 89 78 86 Respiratory 24 16 17 Rate Blood Pressure 140/103 H 139/126 H 137/96 H O2 Saturation 100 97 100 Oxygen O2 Source Room air - EKG (time done) 2131 EKG releavant findings:: EKG personally interpreted by author of this note. Relevant findings are: Rate: Rate (enter#) (77) Rhythm: Atrial fibrillation [place]: Normal QRS: Normal Ischemia: Normal ST segments Compare to prior EKG: Old EKG unavailable Computer interpretation: Agree with computer - Labs Labs: Laboratory Tests 09/24/22 09/24/22 21:35 21:35 WBC 6.2 RBC 4.58 Hgb 13.4 Hct 41.2 MCV 90.0 MCH 29.3 MCHC 32.5 RDW 12.7 Plt Count 209 MPV 9.8 Neut # (Auto) 3.6 Lymph # (Auto) 1.6 Towner # (Auto) 0.7 Eos # (Auto) 0.1 Baso # (Auto) 0.1 Absolute Nucleated RBC 0.00 Nucleated RBC % 0.0 Sodium 140 Potassium 3.5 Chloride 106 Carbon Dioxide 29 Anion Gap 5.0 L BUN 18 Creatinine 0.6 Estimated GFR (MDRD) 97 Glucose 200 H Calcium 9.6 Total Bilirubin 0.6 AST 23 ALT 26 Alkaline Phosphatase 83 Total Protein 6.8 Albumin 3.9 Globulin 2.9 Albumin/Globulin Ratio 1.3 Lipase 40 PD Medical Decision Making - ED course Complexity details: reviewed results, re-evaluated patient, considered differential, d/w patient ED course: The patient was treated with a liter of IV fluid and worked up with EKG, which showed rate controlled A-fib, and with CBC at the ER abdominal panel, which were unremarkable. The patient is feeling better after fluid hydration and I felt she was stable for discharge home. We have discussed the usual indications for follow-up and return. Departure - Departure Disposition: 01 Home, Self Care Clinical Impression: Dehydration, Hyperglycemia Atrial fibrillation Qualifiers: Atrial fibrillation type: unspecified chronic Qualified Code(s): I48.20 - Chronic atrial fibrillation, unspecified Fatigue Qualifiers: Fatigue type: unspecified Qualified Code(s): R53.83 - Other fatigue Condition: Stable Instructions: ED Dehydration Comments: Your labs look fairly good, other than that your blood sugar is a bit elevated. You should follow-up with your primary doctor to have this rechecked and see if this is a chronic issue for you. You have been rehydrated today with IV fluids. Your EKG shows atrial fibrillation but you have a normal heart rate and your vital signs are otherwise normal as well. Please call and make the next available appointment to follow-up with your primary doctor on your blood sugar issue and determine whether you have diabetes. Discharge Date/Time: 09/24/22 23:49
[2022-09-24 23:52] VITALS: BP 137/96
== END 2022-09-24 23:49 | disposition home or self-care (01) ==
LOC: ED 21:17
DX: E86.0 Dehydration (principal); I48.20 Chronic atrial fibrillation, unspecified; R53.83 Other fatigue; R73.9 Hyperglycemia, unspecified; E03.9 Hypothyroidism, unspecified
CPT/HCPCS: 36415; 80053; 83690; 85025; 93005; 99284

== ENCOUNTER 2023-05-28 14:33 | Outpatient (CLI) | payer MEDICARE ==
[2023-05-28 19:38] LABS: BASOPHILS % (AUTO) 0.7 %; EOSINOPHILS % (AUTO) 0.7 %; HCT - HEMATOCRIT 40.5 % (37.0-47.0); HGB - HEMOGLOBIN 12.9 g/dL (12.0-16.0); LYMPHOCYTES # (AUTO) 1.5 10^3/uL (1.5-3.5); LYMPHOCYTES % (AUTO) 27.3 %; MEAN CORPUSCULAR HGB CONC 31.9 g/dL (32.0-36.0); MEAN CORPUSCULAR VOLUME 87.9 fL (81.0-99.0); MEAN PLATELET VOLUME 10.3 fL (7.9-10.8); MONOCYTES # (AUTO) 0.5 10^3/uL (0.0-1.0); MONOCYTES % (AUTO) 8.3 %; NEUTROPHILS # (AUTO) 3.4 10^3/uL (1.5-6.6); NEUTROPHILS % (AUTO) 62.8 %; PLT - PLATELET COUNT 246 10^3/uL (130-450); RED BLOOD COUNT 4.61 10^6/uL (4.20-5.40); RED CELL DISTRIBUTION WIDTH 12.9 % (12.0-15.0); WHITE BLOOD COUNT 5.4 x10^3/uL (4.8-10.8)
[2023-05-28 20:16] LABS: ALBUMIN 4.3 g/dL (3.2-5.5); ALBUMIN/GLOBULIN RATIO 1.6 (1.0-2.2); BILIRUBIN,TOTAL 0.5 mg/dL (0.2-1.0); CALCIUM 9.7 mg/dL (8.5-10.3); CREATININE 0.5 mg/dL (0.6-1.3); POTASSIUM 3.3 mmol/L (3.5-4.5)
[2023-05-28 20:46] LABS: THYROID STIMULATING HORMONE 0.11 uIU/mL (0.34-5.60)
== END 2023-05-28 14:34 | disposition home or self-care (01) ==
LOC: LAB.S 14:33
PROVIDERS: ATTEND Registered Nurse
DX: E03.9 Hypothyroidism, unspecified (principal); R06.09 Other forms of dyspnea
CPT/HCPCS: 36415; 80053; 84439; 84443; 85025

== ENCOUNTER 2023-08-26 08:00 | Outpatient (CLI) | payer MEDICARE | END 2023-08-26 08:01 | disposition home or self-care (01) | LOC: LAB.S 08:00 | PROVIDERS: ATTEND Registered Nurse | DX: R05.1 Acute cough (principal) ==

== ENCOUNTER 2023-08-26 08:00 | Outpatient (CLI) | payer MEDICARE ==
--- NOTE | 2023-08-26 20:15 | XRAY Report ---
PROCEDURE: Chest 2V INDICATIONS: ACUTE COUGH TECHNIQUE: 2 views of the chest were obtained. COMPARISON: 05/06/2022 FINDINGS: Surgical changes and devices: None. Lungs and pleura: No pleural effusions or pneumothorax. Lungs are clear. Mediastinum: Mediastinal contours appear normal. Heart size is normal. Bones and chest wall: No suspicious bony lesions. Overlying soft tissues appear unremarkable. IMPRESSION: No acute cardiopulmonary findings Reviewed by: Solis Conway MD on 08/26/2023 7:14 PM [facility] Approved by: Solis Conway MD on 08/26/2023 7:14 PM [facility] Station ID: [id number]
== END 2023-08-26 23:59 | disposition home or self-care (01) ==
LOC: DI.S 08:00
PROVIDERS: ATTEND Registered Nurse
DX: R05.1 Acute cough (principal)

== ENCOUNTER 2023-10-22 08:00 | Outpatient (CLI) | payer MEDICARE ==
--- NOTE | 2023-10-22 16:00 | XRAY Report ---
PROCEDURE: Lumbar Spine 2-3V INDICATIONS: CONTUSION LOW BACK/LEFT HIP TECHNIQUE: 3 view(s) of the lumbar spine were acquired. COMPARISON: None. FINDINGS: Bones: Convex left thoracolumbar scoliosis. Generalized decreased osseous mineralization present. Di sc space narrowing and hypertrophic facet joints at. Grade 1 anterior spinal listhesis L4-5 Soft tissues: Overlying bowel gas pattern is normal. No suspicious soft tissue calcifications. IMPRESSION: Osteopenia, scoliosis, degenerative disc disease and arthropathy. Reviewed by: Solis Conway MD on 10/22/2023 2:59 PM [facility] Approved by: Solis Conway MD on 10/22/2023 2:59 PM [facility] Station ID: [id number]
--- NOTE | 2023-10-22 16:01 | XRAY Report ---
PROCEDURE: Hip w/Pelvis 2-3V LT INDICATIONS: CONTUSION LOW BACK/LEFT HIP TECHNIQUE: 2 views of the hip were acquired. COMPARISON: None. FINDINGS: Bones: Total right hip arthroplasty. Moderate left hip joint space narrowing. Femoral head contour i s maintained. Pelvic ring intact Soft tissues: No suspicious soft tissue calcifications or masses. IMPRESSION: Moderate left hip joint space narrowing. The right hip arthroplasty Reviewed by: Solis Conway MD on 10/22/2023 3:00 PM [facility] Approved by: Solis Conway MD on 10/22/2023 3:00 PM [facility]DT Station ID: [id number]
== END 2023-10-22 23:59 | disposition home or self-care (01) ==
LOC: DI.S 08:00
PROVIDERS: ATTEND Registered Nurse
DX: S30.0XXA Contusion of lower back and pelvis, initial encounter (principal); S70.02XA Contusion of left hip, initial encounter; M25.552 Pain in left hip; M25.852 Other specified joint disorders, left hip; Z96.641 Presence of right artificial hip joint; M85.88 Other specified disorders of bone density and structure, other site; M47.816 Spondylosis without myelopathy or radiculopathy, lumbar region; M51.36 Other intervertebral disc degeneration, lumbar region